=== PATIENT | male | born 1960 ===

== ENCOUNTER 2016-09-25 14:47 | Inpatient (IN) ==
[~2016-09-25 14:47] MED LIST: CALCIUM CHLORIDE 1,000 MG/10 ML SYRINGE IV ONE; EPINEPHrine 1 MG/10 ML SYRINGE ONE; EPINEPHrine 1 MG/ML VIAL ONE; SODIUM BICARBONATE 50 MEQ/50 ML SYRINGE IV ONE
[2016-09-25] MEDS ORDERED: LIDOCAINE 1% 20 ML VIAL ONE (14:55)
[2016-09-25] MEDS ORDERED: HYDROmorphone 2 MG/1 ML VIAL ONE (15:05)
[2016-09-25] MEDS ORDERED: MIDAZOLAM 2 MG/2 ML VIAL ONE (15:05)
[2016-09-25] MEDS ORDERED: TICAGRELOR 90 MG TABLET ONE (15:22)
[2016-09-25] MEDS ORDERED: NITROPRUSSIDE 50 MG/2 ML VIAL ONE ×2 (15:38→15:39)
[2016-09-25] MEDS ORDERED: MAGNESIUM SULF RIDER 2 GM in PREMIX 1 EACH IV PRN (16:10)
[2016-09-25] MEDS ORDERED: BISACODYL 5 MG TABLET PO PRN (16:10)
[2016-09-25] MEDS ORDERED: ZALEPLON 5 MG CAPSULE PO PRN (16:10)
[2016-09-25] MEDS ORDERED: POTASSIUM CHLORIDE 20 MEQ TABLET PO PRN (16:10)
[2016-09-25] MEDS ORDERED: SODIUM CHLORIDE 0.45% 1,000 ML IV SCH ×2 (16:30→23:05)
--- NOTE | 2016-09-25 16:30 | Cardiac Catheterization ---
Date of Procedure:: 09/25/16 Post-op diagnosis: same Procedure: Procedure performed: 1. Coronary angiography 2. Bypass graft evaluation 3 3. Stenting of saphenous vein graft to RCA with drug-eluting stent (4.0 x 20 synergy) 4. Angioplasty and stenting of right posterior lateral with drug-eluting stent (2.2 X 20 synergy) 5. Right femoral arteriotomy closed with the Enseal device Brief clinical summary: Mr. Munroe is a 56-year-old who presented to [facility] with chest pain and EKG suggestive of inferior injury was transferred directly to the Senior Service Technician for heart catheterization intervention emergently. Description of procedure: After obtaining informed consent, the right groin was prepped and draped in the usual sterile fashion. Next a short 6 Yi sheath was placed in the right femoral artery using a modified Seldinger technique, after the patient received IV sedation and local anesthetic. Next a JL4 catheter was advanced over a guidewire under fluoroscopic guidance, and was engaged to the left coronary artery after which angiography was performed in multiple views. This was then removed over a wire, and a JR4 catheter was advanced in similar fashion, and was engaged to the right coronary artery after which angiography was performed in multiple views. After this the JR4 was pulled back and used to engage the vein grafts with the exception of the vein graft to the LAD which I could not engage. He was admitted to the left subclavian indirect angiogram of the GRIJALVA graft was performed. This was then removed from the body. Percutaneous coronary mention was then performed as described below. An angiogram of the sheath showed that it was inserted in the right common femoral artery in a vessel suitable for closure. Hemostasis was obtained with Angio-Seal device with no residual bleeding. The patient was transferred from the laborer operator in good condition without complication. Percutaneous coronary intervention: The patient out of the Senior Service Technician having received full dose Lovenox before transfer as well as aspirin. He was hypotensive with aortic blood pressure systolic of about 80 mmHg. I advanced a multipurpose to guiding catheter engaged to the vein graft to the RCA with little difficulty. I provided reasonably good support. A pro-water wire was advanced into the right posterior lateral with some difficulty. Next a 4.0 x 20 Synergy stent was advanced across the critical vein graft lesion with some difficulty. He was deployed at nominal pressures and without moving the balloon I redilated to just above nominal pressures with an excellent angiographic result. There was JOSHUA IB flow in the distal right coronary artery /posterior lateral initially. The flow improved slightly distally in the posterior lateral but was still JOSHUA II. There is an area of critical disease in the proximal posterior lateral with some possible thrombus formation. I advanced a 2.0 x 20 balloon to this area dilated to below nominal pressures 2. The flow initially worsened after angioplasty distally one night angioplasty proximally was a little improved. I removed the balloon and advanced 2.25 x 20 Synergy stent and deployed at just below nominal pressures equal to 2.14 mm. There was a very good radiographic result with JOSHUA III flow per of note after the intervention, I tried to advance a left coronary bypass diagnostic catheter to engage the remaining vein graft to the LAD without success. Also try the JR4 again. This point I felt it was unwise to continue given his renal dysfunction. His blood pressure was in the upper 80s systolic at the end of the procedure. At one point I did give night pride 150 mcg was dropped into the 60s systolic briefly. Coronary angiography: Left main coronary is normal developed with only minimal disease. Left anterior descending artery has moderate proximal disease and is occluded just after the takeoff of a small first septal foreign broadcast specialist (high mid occlusion). There is a subtotal occlusion of a proximal diagonal branch which fills sluggishly. The circumflex gives off a large bifurcating OM1 branch with 80% smooth proximal stenosis. There is an occluded thinner than average OM 2 branch which fills by bridging collaterals. The right coronary is occluded very proximally. Grafts: The GRIJALVA to diagonal graft was noted in directly to have normal flow without stenosis. The vein graft to RCA is a large conduit with 99% high mid stenosis, and 95% stenosis in the proximal right posterior lateral in the [place] circulation. The vein graft which previously went to the right sided PDA appears to be occluded at the proximal segment. I was unable to engage the vein graft to the LAD despite several catheters, and abandon attempts to evaluated. Impression: 1. Right dominant system 2. Three-vessel coronary artery disease as described above including but not limited to: A. High mid LAD occlusion with subtotal occlusion of the proximal first diagonal branch B. 80% smooth discrete proximal OM1 stenosis (large bifurcating branch), and a proximal occlusion of a thinner OM 2 branch C. Proximal RCA occlusion Grafts: A. GRIJALVA to the diagonal branch is widely patent with normal flow B. Vein graft to right sided PDA appears to be occluded proximally C. Vein graft LAD was not evaluated (unable to engage with JR4, or LCB catheters) D. Vein graft to RCA has 99% high mid stenosis with 95% proximal right posterior lateral negative vessel stenosis, with probable thrombus present 3. Status post primary stenting of vein graft RCA with 4.0 x 20 drug-eluting stent (synergy) with excellent result (dilated to approximately 4.15 mm) 4. Status post angioplasty and stenting of proximal right posterior lateral with 2.25 x 20 Synergy stent with good result (dilated to 2.14 mm) Recommendation discussion: I believe achieved very good result cart to stenting Mr. Munroe's culprit critical vein graft lesion to the RCA. We also achieved a good result cart distending the [place] disease/thrombus in the right posterior lateral. Unfortunately could not evaluate the vein graft to the LAD but this was closed and inferior [place]. He does have a widely patent GRIJALVA to his diagonal. I note his EF was 30-35 % around the time of his bypass in 2001. I suspect he has severe ischemic cardiomyopathy? He apparently saw Dr. Hurtado back in the early 1999s, but is not followed up in years. He does have history of remote right sided [id number]? He will be watched closely in the CCU and will obtain echocardiogram to evaluate his LV function, etc. Anesthesia: minimal conscious sedation Surgeon / Physician: Sj Dickerson Chute Boss: other Estimated blood loss: minimal Specimens: none sent Condition: stable Disposition: ICU/CCU - Medications / Follow-up
--- NOTE | 2016-09-25 16:56 | Cardiology History & Physical ---
IEdward April RN, am scribing for, and in the presence of, Sj Dickerson MD 16:56. Assessment and Plan - Time spent with patient Time spent with patient: Greater than 30 minutes (Due to assessment, planning, documentation, medication review) (1) STEMI (ST elevation myocardial infarction) Status: Acute Assessment and plan: 1. 56-year-old BMI 33 [place] gentleman with remote anterior [place] and CABG 4 vessel in 2001, status post remote stroke 2 (residual "tunnel vision"), with 30 minutes of chest discomfort and 2 hours of neck pain starting at 4 AM today with inferior injury pattern transferred here emergently for heart catheterization. 2. Mr. Bardales chest discomfort had resolved prior to arrival but had critical disease in his vein graft to his distal RCA, and critical proximal right posterior lateral disease with thrombus present treated successfully with drug- eluting stents (4.0 x 20, and 2.25 x 20 respectively) with good result. 3. He is chest pain-free where observe him closely in the CCU on aspirin and Brilinta as well as high intensity statin and low-dose beta-nilton 4. Sliding scale insulin as needed 5. Check echocardiogram to evaluate for structural heart disease; of note his EF was 30-35% around the time of his CABG 6. 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 Previously followed by Dr. Hurtado but has not seen him in 5-10 years. Current Visit: Yes (2) Hx of CABG Status: Chronic Current Visit: Yes (3) History of CVA (cerebrovascular accident) Status: Chronic Current Visit: Yes History of Present Illness Chief complaint: Abnormal EKG, CP History of present illness: Clinical Sales Consultant: Dr. Hurtado (remote past) PCP: [facility] This note is dictated being dictated after admission as he was taken emergently to the Clinical Quality Analyst upon arrival to [facility]. Mr. Munroe is a 56 year old male who is been seen by Dr. Hurtado in the remote past with a history of CAD and CVA. He had a coronary artery bypass grafting November 2001 with GRIJALVA to the diagonal coronary artery and single reverse saphenous vein grafts to the left anterior descending, right posterior descending, right coronary arteries. I see no record of a heart catheterization since that time. There is no family available for further history information. He presented to the [facility] this morning with complaints of chest tightness and back pain. They felt his EKG was suggestive of inferior NJ and he was transferred to the emergency department [facility]. The emergency physician in the ED agreed with this and he was taken emergently to the Clinical Quality Analyst. Upon arrival to the Clinical Quality Analyst he was pain-free. Home Medications Medication Instructions Recorded Confirmed Type Aspirin Chew Tab 81 mg PO DAILY 12/17/14 12/17/14 History Clopidogrel [Plavix] 75 mg PO DAILY 12/17/14 12/17/14 History Insulin Aspart Prot/Asp 70/30 20 units SUBCUT BEDTIME 12/17/14 12/17/14 History [NovoLOG Mix 70/30] Insulin Aspart Prot/Asp 70/30 30 units SUBCUT DAILY 12/17/14 12/17/14 History [NovoLOG Mix 70/30] Isosorbide Dinitrate 5 mg PO BID 12/17/14 12/17/14 History Lisinopril 40 mg PO DAILY 12/17/14 12/17/14 History Multivitamin [Multivitamins] 1 tablet PO DAILY 12/17/14 12/17/14 History Simvastatin 40 mg PO BEDTIME 12/17/14 12/17/14 History glipiZIDE [Glucotrol] 10 mg PO BID 12/17/14 12/17/14 History hydroCHLOROthiazide 25 mg PO DAILY 12/17/14 12/17/14 History [Hydrochlorothiazide] Allergies Allergy/AdvReac Type Severity Reaction Status Date / Time No Known Allergies Allergy Verified 12/17/14 21:17 ROS unobtainable: other (Family is unavailable at this time) Medical,Surgical,& Family Hx - Medical History Cardio: History of: CAD Neurology: History of: Cerebrovascular Accident Endocrine: History of: Diabetes Mellitus (IDDM) - Surgical History Cardiac Surgeries: Sugical HX of: Cardiac Catheterization, Cardiac Surgery ( bypass in 2002) - Social History Smoking Status: Unknown if ever smoked Cardiology Physical Exam - Constitutional Vitals: Intake and Output 09/25/16 09/25/16 09/25/16 06:59 14:59 22:59 Other: Weight 230 lb Patient Weight 09/26/16 06:59 Weight 230 lb General appearance: no acute distress, over weight - Head Head exam: Present: normal inspection, normocephalic, atraumatic - Neck Neck exam: Present: normal inspection - Respiratory Respiratory exam: Present: clear to auscultation bilaterally - Cardiovascular Cardiovascular exam: Present: regular rate and rhythm (Supine). Absent: diastolic murmur, rubs, systolic murmur - GI/Abdominal GI/Abdominal exam: Present: soft. Absent: tenderness - Extremities Exam Extremities exam: Present: other (Slightly cool at the ankles). Absent: edema - Neurological Exam Neurological exam: Present: alert, oriented X3 Jayla Schultz Randall Scott, MD, personally performed the services described in this documentation, ascribed by Tova Leon RN in my presence, and it is both accurate and complete [id number] .
[2016-09-25] MEDS: ACETAMINOPHEN 325 MG TABLET PO PRN (17:57)
[2016-09-25 19:24] LABS: CKMB % 8.9 %
[2016-09-25] MEDS ORDERED: METOPROLOL TARTRATE 50 MG TABLET PO SCH (21:00)
--- NOTE | 2016-09-25 21:03 | EKG Report ---
Stationary ECG Study [facility] Test Date: 09/25/2016 9:03:44 PM Pat Name: LALO ALDANA Department: Room: 127 Gender: M Tool Pusher: SAJAN : 1960 Requested by: Sj Pereira Order Number: [id number] Reading MD: REX BAÑUELOS Intervals [place] Rate: 64 P: 78 W[place]: 214 QRS: -46 QRSD: 110 T: 152 QT: 392 QTc: 401 Interpretive Statements SINUS RHYTHM WITH PROLONGED WY INTERVAL MARKED LEFT AXIS DEVIATION POSSIBLE ANTERIOR MYOCARDIAL INFARCTION, PROBABLY OLD ST DEPRESSION, CONSIDER SUBENDOCARDIAL INJURY Electronically Signed On 09-26-16 09:32:30 CDT by REX BAÑUELOS [email or web address]
[2016-09-25] MEDS: ATORVASTATIN 40 MG TABLET PO SCH (21:39)
[2016-09-25] MEDS: FAMOTIDINE 20 MG TABLET PO SCH (21:39)
[2016-09-25] MEDS: TICAGRELOR 90 MG TABLET PO SCH (21:39)
[2016-09-25] MEDS ORDERED: DOBUTamine 500 MG/250 ML PREMIX IV ONE (22:52)
[2016-09-25] MEDS: DOBUTamine 500 MG/250 ML PREMIX IV SCH (23:10)
[2016-09-25] MEDS: ONDANSETRON 4 MG/2 ML VIAL IV PRN (23:11)
[2016-09-26] MEDS: ONDANSETRON 4 MG/2 ML VIAL IV PRN ×2 (02:58→12:01)
[2016-09-26] MEDS: ACETAMINOPHEN 325 MG TABLET PO PRN ×3 (05:21→22:07)
[2016-09-26 05:32] LABS: Basophils % 0.1 % (0.0-0.8); Hematocrit 36.1 VOL% (42.0-52.0); Hemoglobin 12.4 GM/DL (14.0-18.0); Immature Granulocytes % 0.4 %; Immature Granulocytes Absolute 0.06 #; Lymphocytes % 6.9 % (21.2-54.2); Mean Corpuscular HGB Conc 34.3 GM/DL (32-36); Mean Corpuscular Hemoglobin 31 PG (27-34); Mean Corpuscular Volume 89.8 FL (87-102); Mean Platelet Volume 10.8 FL (9.6-12.0); Monocytes # 1.6 10*3/uL (0.11-0.8); Monocytes % 11.1 % (1.7-12.7); Neutrophils # 11.7 10*3/uL (1.4-7.4); Neutrophils % 81.5 % (38.7-73.9); Platelet Count 172 T/CUMM (130-400); Red Blood Count 4.02 MC/CUMM (3.8-5.5); Red Cell Distribution Width 13.8 % (9.3-17.3); White Blood Count 14.4 T/CUMM (4-12)
[2016-09-26] MEDS: SODIUM CHLORIDE 0.45% 1,000 ML IV SCH ×4 (05:54→22:01)
[2016-09-26 06:22] LABS: CKMB % 6.8 %; Calcium 7.9 MG/DL (8.5-10.1); Osmolality,Calculated 279.4 MOS/KG (273-304)
--- NOTE | 2016-09-26 06:32 | EKG Report ---
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
--- NOTE | 2016-09-26 07:30 | EKG Report ---
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
--- NOTE | 2016-09-26 07:41 | EKG Report ---
Stationary ECG Study [facility] Test Date: 09/25/2016 10:43:37 PM Pat Name: LALO ALDANA Department: Room: 127 Gender: M Manager Employee Relations: : 1960 Requested by: Sj Pereira Order Number: [id number] Reading MD: REX BAÑUELOS Intervals [place] Rate: 66 P: 36 [place]: 205 QRS: 46 QRSD: 114 T: 213 QT: 395 QTc: 408 Interpretive Statements SINUS RHYTHM LOW QRS VOLTAGE IN EXTREMITY LEADS POSSIBLE ANTERIOR MYOCARDIAL INFARCTION, PROBABLY OLD MODERATE T-WAVE ABNORMALITY, CONSIDER INFERIOR ISCHEMIA INTERPRETATION BASED ON A DEFAULT AGE OF 40 YEARS Electronically Signed On 09-26-16 09:34:38 CDT by REX BAÑUELOS [email or web address]
[2016-09-26] MEDS ORDERED: SODIUM CHLORIDE 0.45% 250 ML IV ONE (08:47)
[2016-09-26] MEDS: TICAGRELOR 90 MG TABLET PO SCH ×2 (09:18→22:08)
[2016-09-26] MEDS: ASPIRIN EC 81 MG TABLET PO SCH (09:18)
[2016-09-26] MEDS: INSULIN REGULAR 100 UNIT/ML SUBCUT SCH ×4 (09:18→22:09)
[2016-09-26] MEDS: FAMOTIDINE 20 MG TABLET PO SCH ×2 (09:18→22:08)
--- NOTE | 2016-09-26 09:29 | Cardiology Progress Note ---
Assessment and Plan (1) STEMI (ST elevation myocardial infarction) Status: Acute Assessment and plan: 1. 56-year-old BMI 33 [place] gentleman with remote anterior CT and CABG 4 vessel in 2001, status post remote stroke 2 (residual "tunnel vision"), with 30 minutes of chest discomfort and 2 hours of neck pain starting at 4 AM today with inferior injury pattern transferred here emergently for heart catheterization. 2. Mr. Bardales chest discomfort had resolved prior to arrival but had critical disease in his vein graft to his distal RCA, and critical proximal right posterior lateral disease with thrombus present treated successfully with drug- eluting stents (4.0 x 20, and 2.25 x 20 respectively) with good result. 3. He is chest pain-free where observe him closely in the CCU on aspirin and Brilinta as well as high intensity statin and low-dose beta-nilton 4. Sliding scale insulin as needed 5. Check echocardiogram to evaluate for structural heart disease; of note his EF was 30-35% around the time of his CABG 6. 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 Previously followed by Dr. Hurtado but has not seen him in 5-10 years. September 26, 2016: 1. Mr. Munroe had hypotension earlier this morning requiring dobutamine 2.5 mcg/kg /min; he again had hypotension after I stopped this, so we will continue it and hold beta-nilton for now. 2. Will DC IV fluid (had a small bolus this morning) 3. CKD with creatinine 2.6 which is essentially unchanged this morning 4. We will continue to monitor and CCU 5. Continue high intensity statin therapy and DAP therapy 6. Echo pending but I suspect he has severely reduced LV systolic function ( was moderately reduced at the time of his CABG in 2001) 7. Status post inferior CT with late presentation (symptoms for 3 days before prolonged pain that resulted him to him being transferred here) Current Visit: Yes (2) Hx of CABG Status: Chronic Current Visit: Yes (3) History of CVA (cerebrovascular accident) Status: Chronic Current Visit: Yes Cardiology - PN: Subj Interval history: Mr. Lopez feels well but had hypotension earlier this morning requiring saline bolus and dobutamine 2.5 mcg/kg/min. He is not having any dysrhythmia. His urine output is reasonable at about 0.3 mg/kg/h. He has no chest discomfort. He did have shortness of breath earlier this morning. Exam (Progress Note) - Constitutional Vitals: Period Temp Pulse Resp BP Sys/Rosado Pulse Ox Last 24 Hr 97.8 F-98.2 F 63-102 13-26 64-126/42-81 90-100 General appearance: over weight - Head Head exam: Present: normal inspection, normocephalic, atraumatic - Neck Neck exam: Present: normal inspection - Respiratory Respiratory exam: Present: rales. Absent: stridor, wheezes - Cardiovascular Cardiovascular exam: Present: regular rate and rhythm. Absent: diastolic murmur , rubs - GI/Abdominal GI/Abdominal exam: Present: soft. Absent: tenderness - Extremities Exam Extremities exam: Present: edema, other (Right groin is moderately tender but there is no bleeding bruit or hematoma) Result/EKG - Labs CBC & BMP: 09/26/16 05:17 09/26/16 05:17 Labs: Laboratory Results - last 24 hr 09/25/16 09/25/16 09/25/16 16:50 19:51 23:12 WBC RBC Hgb Hct MCV MCH MCHC RDW Plt Count MPV Neut % (Auto) Lymph % (Auto) Noble % (Auto) Eos % (Auto) Baso % (Auto) Neut # (Auto) Lymph # (Auto) Noble # (Auto) Eos # (Auto) Baso # (Auto) Immature Gran % Nucleated RBC % Immature Gran # Nucleated RBCs # Immature Plt Fraction Sodium Potassium Chloride Carbon Dioxide Anion Gap BUN Creatinine GFR Calculation BUN/Creatinine Ratio Glucose POC Glucose Calculated Osmolality Calcium Total Creatine Kinase 1943 H CK-MB (CK-2) 172.8 H CK and CKMB Interp 8.9 Troponin I 116.000 H 147.000 H D 166.000 H 09/26/16 09/26/16 09/26/16 05:17 05:17 07:31 WBC 14.4 H RBC 4.02 Hgb 12.4 L Hct 36.1 L MCV 89.8 MCH 31 MCHC 34.3 RDW 13.8 Plt Count 172 MPV 10.8 Neut % (Auto) 81.5 H Lymph % (Auto) 6.9 L Noble % (Auto) 11.1 Eos % (Auto) 0.0 Baso % (Auto) 0.1 Neut # (Auto) 11.7 H Lymph # (Auto) 1.0 L Noble # (Auto) 1.6 H Eos # (Auto) 0.0 Baso # (Auto) 0.0 Immature Gran % 0.4 Nucleated RBC % 0.0 Immature Gran # 0.06 Nucleated RBCs # 0.00 Immature Plt Fraction 0.0 Sodium 133 L Potassium 4.0 Chloride 101 Carbon Dioxide 20 L Anion Gap 16.0 H BUN 41 H Creatinine 2.60 H GFR Calculation 36 BUN/Creatinine Ratio 15.00 Glucose 168 H POC Glucose 189 H Calculated Osmolality 279.4 Calcium 7.9 L Total Creatine Kinase 1730 H CK-MB (CK-2) 118.5 H D CK and CKMB Interp 6.8 Troponin I 145.000 H Specialty Discharge - Follow Up or Referrals
--- NOTE | 2016-09-26 14:39 | ECHO Report ---
[place] Munroe Exam Date: 09/26/2016 08:22 Referring Physician: Technologist: Judith Finney RDCS Age: 56 Ht (in): 72 Wt (lb): 250 Gender: M Exam Location: [facility] Echo Indications: ST elevation (STEMI) myocardial infarction of unspecified site, CAD with previous CABG, hx CVA, IDDM BP: 89 / 67 HR: 84 Rhythm: Sinus Technical Quality: IMPRESSIONS Technically difficult study 3-4+ left atrial enlargement 1+ left ventricular enlargement Severely reduced LV systolic function with global hypokinesis and severe apical hypokinesis; overall ejection fraction 20% Aortic sclerosis without stenosis Approximately 2+ eccentric mitral regurgitation Approximately 2+ tricuspid regurgitation with RVSP 40 mmHg plus RAP MEASUREMENTS (Male / Female) Normal Values 2D ECHO LV Diastolic Diameter PLAX 6.4 cm 4.2 - 5.9 / 3.9 - 5.3 cm LV Systolic Diameter PLAX 5.7 cm LV Fractional Shortening PLAX 10.8 % IVS Diastolic Thickness 1.1 cm 0.6 - 1.0 / 0.6 - 0.9 cm LVPW Diastolic Thickness 1.1 cm 0.6 - 1.0 / 0.6 - 0.9 cm RV Internal Dim ED PLAX 4.3 cm Aortic Root Diameter 3.5 cm LA Systolic Diameter LX 5.3 cm 3.0 - 4.0 / 2.7 - 3.8 cm DOPPLER TR Peak Velocity 315.0 cm/s TR Peak Gradient 39.7 mmHg FINDINGS Left Ventricle Mildly increased left ventricular cavity size. Mild left ventricular hypertrophy. Left ventricular ejection fraction is estimated at 20 %. Right Ventricle The right ventricle is normal in size and function. Right Atrium Moderately increased right atrial size. Left Atrium Moderately increased left atrial size. Mitral Valve Mildly thickened mitral valve. Mild-moderate mitral valve regurgitation. Aortic Valve Morphologically normal aortic valve without significant sclerosis or stenosis. There is no aortic regurgitation. Tricuspid Valve Morphologically normal tricuspid valve. Mild tricuspid valve regurgitation. Tricuspid regurgitation velocities suggest a PAP of 50 mmHg. Pulmonic Valve Morphologically normal pulmonic valve without significant stenosis. There is no pulmonic regurgitation. Pericardium Normal pericardium without effusion. Aorta Normal ascending aorta dimension. Sj Dickerson (Electronically Signed) Final Date: 26 September 2016 14:38
[2016-09-26] MEDS: ATORVASTATIN 40 MG TABLET PO SCH (22:08)
[2016-09-26] MEDS: DOBUTamine 500 MG/250 ML PREMIX IV SCH (22:38)
[2016-09-27] MEDS: SODIUM CHLORIDE 0.45% 1,000 ML IV SCH ×3 (04:02→11:55)
[2016-09-27 05:40] LABS: Basophils % 0.1 % (0.0-0.8); Eosinophils % 0.1 % (0.00-10.9); Hematocrit 35.5 VOL% (42.0-52.0); Hemoglobin 12.3 GM/DL (14.0-18.0); Immature Granulocytes % 0.8 %; Immature Granulocytes Absolute 0.11 #; Lymphocytes % 7.3 % (21.2-54.2); Mean Corpuscular HGB Conc 34.6 GM/DL (32-36); Mean Corpuscular Hemoglobin 31 PG (27-34); Mean Corpuscular Volume 89.4 FL (87-102); Mean Platelet Volume 11.8 FL (9.6-12.0); Monocytes # 1.8 10*3/uL (0.11-0.8); Monocytes % 12.9 % (1.7-12.7); Neutrophils # 10.9 10*3/uL (1.4-7.4); Neutrophils % 78.8 % (38.7-73.9); Platelet Count 194 T/CUMM (130-400); Red Blood Count 3.97 MC/CUMM (3.8-5.5); Red Cell Distribution Width 13.7 % (9.3-17.3); White Blood Count 13.8 T/CUMM (4-12)
[2016-09-27 06:14] LABS: Calcium 7.5 MG/DL (8.5-10.1); Magnesium 2.2 MG/DL (1.8-2.4); Osmolality,Calculated 277.2 MOS/KG (273-304); Potassium 3.9 MMOL/L (3.5-5.1); Risk Ratio 2.27; VLDL CHOLESTEROL 22.8 MG/DL
--- NOTE | 2016-09-27 06:21 | EKG Report ---
Stationary ECG Study [facility] Test Date: 09/27/2016 4:21:48 AM Pat Name: LALO ALDANA Department: Room: 127 Gender: M Guitar Technician: KENYON : 1960 Requested by: Sj Pereira Order Number: [id number] Reading MD: REX BAÑUELOS Intervals [place] Rate: 107 P: 64 [place]: 164 QRS: 139 QRSD: 150 T: 16 QT: 358 QTc: 421 Interpretive Statements SINUS TACHYCARDIA INTRAVENTRICULAR CONDUCTION DELAY Electronically Signed On 09-27-16 13:09:13 CDT by REX BAÑUELOS [id number]
[2016-09-27] MEDS ORDERED: HYDROmorphone 2 MG/1 ML VIAL ONE (07:03)
[2016-09-27] MEDS ORDERED: DOPamine 800 MG/250 ML PREMIX IV ONE (07:04)
[2016-09-27] MEDS ORDERED: HYDROmorphone 2 MG/1 ML VIAL IV ONE (07:11)
[2016-09-27] MEDS ORDERED: SODIUM CHLORIDE 0.45% 500 ML IV ONE (07:15)
[2016-09-27] MEDS ORDERED: DOPamine 800 MG/250 ML PREMIX IV SCH ×2 (07:30→08:30)
[2016-09-27] MEDS: INSULIN REGULAR 100 UNIT/ML SUBCUT SCH (08:00)
--- NOTE | 2016-09-27 08:07 | Physician Query Form ---
CLICK EDIT DOCUMENT TO SELECT QUERY ANSWER --> OK --> SIGN Vandana Clarke RN, CCDS Certified Clinical Electric Range Assembler W) [phone] (f) [phone] [email or web address]: Make your selection(s) from the choices in EACH section by typing an "x" and enter comments in the comment section. Please use your independent medical judgment in providing your response. This request does not imply that any particular answer is desired or expected. CLINICAL INDICATORS: (Providers should not edit this section) The medical record indicates that the patient was admitted with a NSTEMI, creatinine of 2.60 on the 15th that has increased to 3.90 on the 16th, GFR of 36 # on the 15th that has decreased to 22# on the 16th and the patient is on Dobutamine/ IVF's. Clarify which of the following most accurately represents the patient's renal status: ( ) Acute kidney injury (non-traumatic) ( ) Acute renal failure ( ) Acute renal failure with underlying Chronic Kidney Disease (CKD) - please provide stage below ( ) Acute renal failure with pathological renal lesion ( ) Acute renal failure with necrosis ( ) tubular ( ) medullary ( ) cortical ( ) CKD - please provide stage below ( ) End Stage Renal Disease ( ) Acute interstitial nephritis ( ) Hepatorenal syndrome ( ) Other, please specify: ( ) Clinically unable to determine Chronic Kidney Disease Stages Source: National Kid[employer] Foundation ( ) Stage I (eGFR > or = 90) ( ) Stage II (eGFR 60 - 89) ( ) Stage III (eGFR 30 - 59) ( ) Stage IV (eGFR 15 - 29) ( ) Stage V (eGFR < 15 or dialysis) COMMENTS: PLEASE ALSO DOCUMENT RESPONSE IN PROGRESS NOTES AND/OR DISCHARGE SUMMARY Use of terms such as suspected, likely, or probable (associated with a specific diagnosis that is being evaluated, monitored, or treated as if it exists) are acceptable and can be restated in the discharge summary if not ruled out. MTDD
--- NOTE | 2016-09-27 08:08 | Physician Query Form ---
CLICK EDIT DOCUMENT TO SELECT QUERY ANSWER --> OK --> SIGN Vandana Clarke RN, CCDS Certified Clinical Dismantler W) [phone] (f) [phone] [email or web address]: Make your selection(s) from the choices in EACH section by typing an "x" and enter comments in the comment section. Please use your independent medical judgment in providing your response. This request does not imply that any particular answer is desired or expected. CLINICAL INDICATORS: (Providers should not edit this section) The medical record indicates that the patient was admitted with a NSTEMI, on the : "hypotension earlier this morning requiring dobutamine 2.5 mcg/kg/min ; he again had hypotension after I stopped this, so we will continue it and hold beta-nilton for now". Please clarify which, if any, of the following is the etiology of the above symptoms and treatment rendered: ( ) Hypovolemic shock ( ) Septic shock ( X) Cardiogenic shock ( ) Hemorrhagic shock ( ) Traumatic shock ( ) Shock due to, please specify etiology: ( ) Shock, unknown etiology ( ) Drug induced, please specify substance: ( ) Iatrogenic Hypotension ( ) Orthostatic Hypotension ( ) Hypotension, unknown etiology ( ) Other, please specify: ( ) Clinically unable to determine COMMENTS: PLEASE ALSO DOCUMENT RESPONSE IN PROGRESS NOTES AND/OR DISCHARGE SUMMARY Use of terms such as suspected, likely, or probable (associated with a specific diagnosis that is being evaluated, monitored, or treated as if it exists) are acceptable and can be restated in the discharge summary if not ruled out. MTDD
--- NOTE | 2016-09-27 08:43 | Event Note ---
Called SERGEI STROUD in room 127. Patient was unresponsive without spontaneous respirations. CPR was in progress. Patient was intubated with a 7-1/2 endotracheal tube without difficulty. Placement was confirmed with capnometry and auscultation. Cords were visualized and tube was seen passing over the cords. Dr. Bello was present and in charge of code. ACLS protocols in use. Patient was given multiple doses of epi and bicarb due to his metabolic acidosis.
[2016-09-27] MEDS ORDERED: VASOPRESSIN 20 UNITS/ML VIAL ONE ×2 (08:45→08:52)
--- NOTE | 2016-09-27 09:21 | Event Note ---
CODE BLUE note Patient was found apneic and pulseless. CPR was started according to ACLS protocols. He was intubated by the emergency room physician. Please see separate note for the intubation. Patient's labs were reviewed and showed a metabolic acidosis with a CO2 of 14 and acute kidney injury with a creatinine of 3.9. The patient was treated with multiple amps of bicarbonate as well as epinephrine. He received continuous chest compressions. He never regained a pulse. There were 2 episodes of fine V. fib that required shock. Patient never regained a pulse. Critical care time and total time spent at the bedside performing cardiopulmonary resuscitation was 45 minutes. Time of 9:12 AM
--- NOTE | 2016-09-27 10:24 | Cardiology Progress Note ---
Assessment and Plan (1) STEMI (ST elevation myocardial infarction) Status: Acute Assessment and plan: 1. 56-year-old BMI 33 [place] gentleman with remote anterior SC and CABG 4 vessel in 2001, status post remote stroke 2 (residual "tunnel vision"), with 30 minutes of chest discomfort and 2 hours of neck pain starting at 4 AM today with inferior injury pattern transferred here emergently for heart catheterization. 2. Mr. Bardales chest discomfort had resolved prior to arrival but had critical disease in his vein graft to his distal RCA, and critical proximal right posterior lateral disease with thrombus present treated successfully with drug- eluting stents (4.0 x 20, and 2.25 x 20 respectively) with good result. 3. He is chest pain-free where observe him closely in the CCU on aspirin and Brilinta as well as high intensity statin and low-dose beta-nilton 4. Sliding scale insulin as needed 5. Check echocardiogram to evaluate for structural heart disease; of note his EF was 30-35% around the time of his CABG 6. 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 Previously followed by Dr. Hurtado but has not seen him in 5-10 years. September 26, 2016: 1. Mr. Munroe had hypotension earlier this morning requiring dobutamine 2.5 mcg/kg /min; he again had hypotension after I stopped this, so we will continue it and hold beta-nilton for now. 2. Will DC IV fluid (had a small bolus this morning) 3. CKD with creatinine 2.6 which is essentially unchanged this morning 4. We will continue to monitor and CCU 5. Continue high intensity statin therapy and DAP therapy 6. Echo pending but I suspect he has severely reduced LV systolic function ( was moderately reduced at the time of his CABG in 2001) 7. Status post inferior SC with late presentation (symptoms for 3 days before prolonged pain that resulted him to him being transferred here) September 27, 2016: 1. Mr. Munroe still requiring dobutamine to maintain his blood pressure. Given his chest discomfort decrease his dobutamine to 2.5 mcg but is having difficulty maintaining his blood pressure. I suspect this is related to his inferior SC on top of severely reduced LV systolic function with EF of 20%. 2. Try to change dobutamine to low-dose dopamine 3 mg/kg/min to maintain blood pressure 3. Creatinine is risen over 3; check EKG; I think it would be unwise to take him to the [facility] unless absolutely necessary given his renal dysfunction. 4. Continue baby aspirin and Brilinta 5. Cannot tolerate beta nilton or ZACHARY inhibitor at this time; appears to have cardiogenic shock as well as cardiorenal syndrome with probably some BRENNAN effect status post stenting of his critical vein graft RCA lesion as well as his thrombosed right posterior lateral with a reasonably good result. Current Visit: Yes (2) Hx of CABG Status: Chronic Current Visit: Yes (3) History of CVA (cerebrovascular accident) Status: Chronic Current Visit: Yes Cardiology - PN: Subj Interval history: Mr. Munroe required dobutamine during the night to maintain his blood pressure. His urine output has dropped off this morning. She began to have chest pain earlier this morning inside decreased his dobutamine to 2.5 mcg. He is still having some chest and lower back pain. He has not had any bleeding problems. Exam (Progress Note) - Constitutional Vitals: Period Temp Pulse Resp BP Sys/Rosado Pulse Ox Last 24 Hr 97.1 F-98.8 F 78-119 12-28 69-138/45-94 87-100 General appearance: normal weight, mild distress - Head Head exam: Present: normal inspection, normocephalic, atraumatic - Neck Neck exam: Present: normal inspection - Respiratory Respiratory exam: Present: rales. Absent: wheezes - Cardiovascular Cardiovascular exam: Present: regular rate and rhythm. Absent: diastolic murmur , rubs - GI/Abdominal GI/Abdominal exam: Present: soft. Absent: tenderness - Extremities Exam Extremities exam: Absent: edema Result/EKG - Labs CBC & BMP: 09/27/16 04:33 09/27/16 04:34 Labs: Laboratory Results - last 24 hr 09/26/16 09/26/16 09/26/16 11:07 16:49 21:37 WBC RBC Hgb Hct MCV MCH MCHC RDW Plt Count MPV Neut % (Auto) Lymph % (Auto) Blount % (Auto) Eos % (Auto) Baso % (Auto) Neut # (Auto) Lymph # (Auto) Blount # (Auto) Eos # (Auto) Baso # (Auto) Immature Gran % Nucleated RBC % Immature Gran # Nucleated RBCs # Immature Plt Fraction Sodium Potassium Chloride Carbon Dioxide Anion Gap BUN Creatinine GFR Calculation BUN/Creatinine Ratio Glucose POC Glucose 194 H 207 H 233 H Calculated Osmolality Calcium Magnesium Troponin I Triglycerides Cholesterol LDL Cholesterol VLDL Cholesterol HDL Cholesterol Heart Disease Risk Ratio 09/27/16 09/27/16 09/27/16 04:33 04:33 04:34 WBC 13.8 H RBC 3.97 Hgb 12.3 L Hct 35.5 L MCV 89.4 MCH 31 MCHC 34.6 RDW 13.7 Plt Count 194 MPV 11.8 Neut % (Auto) 78.8 H Lymph % (Auto) 7.3 L Blount % (Auto) 12.9 H Eos % (Auto) 0.1 Baso % (Auto) 0.1 Neut # (Auto) 10.9 H Lymph # (Auto) 1.0 L Blount # (Auto) 1.8 H Eos # (Auto) 0.0 Baso # (Auto) 0.0 Immature Gran % 0.8 Nucleated RBC % 0.0 Immature Gran # 0.11 Nucleated RBCs # 0.00 Immature Plt Fraction 0.0 Sodium 127 L Potassium 3.9 Chloride 97 L Carbon Dioxide 14 L Anion Gap 19.9 H BUN 52 H D Creatinine 3.90 H GFR Calculation 22 BUN/Creatinine Ratio 13.00 Glucose 260 H POC Glucose Calculated Osmolality 277.2 Calcium 7.5 L Magnesium 2.2 Troponin I 119.000 H Triglycerides 114 Cholesterol 109 LDL Cholesterol 47.0 VLDL Cholesterol 22.8 HDL Cholesterol 48 Heart Disease Risk Ratio 2.27 09/27/16 09/27/16 07:34 08:41 WBC RBC Hgb Hct MCV MCH MCHC RDW Plt Count MPV Neut % (Auto) Lymph % (Auto) Blount % (Auto) Eos % (Auto) Baso % (Auto) Neut # (Auto) Lymph # (Auto) Blount # (Auto) Eos # (Auto) Baso # (Auto) Immature Gran % Nucleated RBC % Immature Gran # Nucleated RBCs # Immature Plt Fraction Sodium Potassium Chloride Carbon Dioxide Anion Gap BUN Creatinine GFR Calculation BUN/Creatinine Ratio Glucose POC Glucose 323 H 310 H Calculated Osmolality Calcium Magnesium Troponin I Triglycerides Cholesterol LDL Cholesterol VLDL Cholesterol HDL Cholesterol Heart Disease Risk Ratio Specialty Discharge - Follow Up or Referrals
[2016-09-27 11:05] VITALS: BP 80/45
[2016-09-27] MEDS: TICAGRELOR 90 MG TABLET PO SCH (11:56)
[2016-09-27] MEDS: ASPIRIN EC 81 MG TABLET PO SCH (11:56)
[2016-09-27] MEDS: FAMOTIDINE 20 MG TABLET PO SCH (11:56)
== END 2016-09-27 09:12 | disposition expired | DRG 247 ==
LOC: N.CL 16:02 → N.CC 16:21
PROVIDERS: ADMIT Internal Medicine Cardiovascular Disease; ATTEND Internal Medicine Cardiovascular Disease